=== PATIENT | female | born 1960 | race Caucasian/White ===

== ENCOUNTER 2018-03-10 14:11 | Emergency (ER) | payer BC ==
[~2018-03-10] VITALS: Ht 167.6 cm; Wt 67.6 kg
[2018-03-10 14:21] VITALS: BP_SYST 110
[2018-03-10 14:59] LABS: HEMATOCRIT 43.7 % (36-48); HEMOGLOBIN 14.7 g/dL (12.0-16.0); MEAN CORPUSCULAR HEMOGLOBIN 33 pg (27-31); MEAN CORPUSCULAR HGB CONC 34 % (32-36); MEAN CORPUSCULAR VOLUME 97 fL (79.0-98.0); PLATELET COUNT (AUTO) 319 K/uL (130-430); RED BLOOD CELL COUNT(AUTO) 4.52 MIL/uL (4.2-6.2); RED CELL DISTRIBUTION WIDTH 11.7 % (9.0-15.0)
[2018-03-10] MEDS ORDERED: NACL 0.9% 1,000 ML IV ONE (15:00)
[2018-03-10 15:06] LABS: WHITE BLOOD COUNT (AUTO) 6.7 K/uL (4.8-10.8)
[2018-03-10 15:11] LABS: CALCIUM 8.2 mg/dL (8.4-11.0); CREATININE 0.68 mg/dL (0.55-1.30); POTASSIUM 3.6 mmol/L (3.5-5.1)
[2018-03-10 15:16] LABS: ALBUMIN 1.3 g/dL (3.4-4.8); TOTAL BILIRUBIN 0.4 mg/dL (0.0-1.0)
[2018-03-10 16:15] LABS: BAND % (MANUAL) 0 % (0-6)
[2018-03-10 16:16] LABS: BASOPHILS % (MANUAL) 0 % (0-2); EOSINOPHILS % (MANUAL) 2 % (0-7); LYMPHOCYTES % (MANUAL) 35 % (20-46); MONOCYTES % (MANUAL) 8 % (0-11)
[2018-03-10 16:23] LABS: PROTHROMBIN TIME 9.7 SECS (9.5-12.5)
[2018-03-10] MEDS ORDERED: APIXABAN 2.5 MG TABLET PO ONE (16:45)
[2018-03-10 17:02] LABS: BILIRUBIN,URINE NEGATIVE (NEGATIVE); CLARITY/URINE CLEAR (CLEAR); COLOR,URINE YELLOW (YELLOW); GLUCOSE,URINE NEGATIVE (NEGATIVE); KETONES,URINE NEGATIVE (NEGATIVE); LEUKOCYTE ESTERASE ,URINE NEGATIVE (NEGATIVE); NITRITE, URINE NEGATIVE (NEGATIVE); PH,URINE 6.5 (5.0-8.0); PROTEIN URINE 2+ (NEGATIVE); UROBILINOGEN,URINE 0.2 (0.2-1.0)
[2018-03-10 17:03] LABS: BLOOD, URINE TRACE (NEGATIVE)
[2018-03-10 17:10] LABS: BACTERIA,URINE RARE /HPF (None Seen); RBC,URINE 0-3 /HPF (0-3); WBC,URINE 0-3 /HPF (0-3)
[2018-03-10 17:15] LABS: FREE T4 (FREE THYROXINE) 0.5 ng/dL (0.6-1.6); THYROID STIMULATING HORMONE 2.99 uIu/mL (0.34-4.82)
[2018-03-10 18:36] VITALS: BP_SYST 118
== END 2018-03-10 18:36 | disposition home or self-care (01) ==
LOC: SED 14:11
DX: I82.403 Acute embolism and thrombosis of unspecified deep veins of lower extremity, bilateral (principal)
CPT/HCPCS: 36415; 74176; 80053; 81000; 82550; 84439; 84443; 85007; 85027; 85610; 85730; 86886; 86900; 86901; 93970; 99285; J7030

== ENCOUNTER 2018-03-19 08:05 | Outpatient (CLI) | payer BC ==
[2018-03-19 10:43] LABS: HDL CHOLESTEROL 109 mg/dL (>55); TRIGLYCERIDES 235 mg/dL (30-150)
[2018-03-19 11:36] LABS: CHOLESTEROL 604 mg/dL (<200)
[2018-03-19 11:37] LABS: LDL CHOLESTEROL 459 mg/dL (<100)
== END 2018-03-19 20:24 | disposition home or self-care (01) ==
LOC: SUS 08:05
PROVIDERS: ATTEND Internal Medicine
DX: D18.00 Hemangioma unspecified site (principal); Q44.6 Cystic disease of liver; E78.5 Hyperlipidemia, unspecified
CPT/HCPCS: 36415; 76700-TC; 80061

== ENCOUNTER 2018-06-25 08:38 | Outpatient (CLI) | payer BC | END 2018-06-25 21:14 | disposition home or self-care (01) | LOC: SUS 08:38 | PROVIDERS: ATTEND Internal Medicine | DX: I73.9 Peripheral vascular disease, unspecified (principal) | CPT/HCPCS: 93923 ==

== ENCOUNTER 2019-05-05 11:12 | Outpatient (CLI) | payer BC ==
[2019-05-05 12:18] LABS: ALBUMIN 4.1 g/dL (3.4-4.8); CREATININE 0.78 mg/dL (0.55-1.30); POTASSIUM 4.8 mmol/L (3.5-5.1); TOTAL BILIRUBIN 1.1 mg/dL (0.0-1.0)
== END 2019-05-05 21:17 | disposition home or self-care (01) ==
LOC: SLB 11:12
PROVIDERS: ATTEND Internal Medicine
DX: E78.5 Hyperlipidemia, unspecified (principal)
CPT/HCPCS: 36415; 80053

== ENCOUNTER 2020-06-09 08:10 | Outpatient (CLI) | payer BC | END 2020-06-09 20:35 | disposition home or self-care (01) | LOC: SUS 08:10 | PROVIDERS: ATTEND Internal Medicine | DX: K76.89 Other specified diseases of liver (principal); D18.09 Hemangioma of other sites | CPT/HCPCS: 76700-TC ==

== ENCOUNTER 2021-07-06 08:24 | Outpatient (CLI) | payer BC | END 2021-07-06 21:05 | disposition home or self-care (01) | LOC: SUS 08:24 | PROVIDERS: ATTEND Internal Medicine | DX: K76.89 Other specified diseases of liver (principal); R94.5 Abnormal results of liver function studies | CPT/HCPCS: 76700-TC ==